=== PATIENT | female | born 1990 | race Caucasian/White ===

== ENCOUNTER 2019-12-27 21:48 | Emergency (ER) | payer OTHER ==
[~2019-12-27] VITALS: Ht 152.4 cm; Wt 55.0 kg
[2019-12-27 22:10] VITALS: BP 107/66
== END 2019-12-28 00:20 | disposition home or self-care (01) ==
LOC: ER 21:48
DX: J06.9 Acute upper respiratory infection, unspecified (principal); Z20.828 Contact with and (suspected) exposure to other viral communicable diseases; R05 Cough; R50.9 Fever, unspecified
CPT/HCPCS: 99283; C9803; U0003